=== PATIENT | female | born 1980 | race Caucasian/White ===

== ENCOUNTER → 2024-05-25 16:26 | Outpatient (REF) | payer BC, SELFPAY | LOC: RAD 16:26 | PROVIDERS: ATTENDING PHYSICIAN Physician Assistant Medical | DX: M54.50 Low back pain, unspecified (principal) | CPT/HCPCS: 72110 ==

== ENCOUNTER → 2024-06-28 16:05 | Outpatient (REF) | payer BC, SELFPAY | LOC: PAVMRI 16:05 | PROVIDERS: ATTENDING PHYSICIAN Physician Assistant Medical | DX: M43.9 Deforming dorsopathy, unspecified (principal) | CPT/HCPCS: 72146 ==

== ENCOUNTER → 2025-03-23 07:11 | Outpatient (REF) | payer BC, SELFPAY | LOC: HWRAD 07:11 | PROVIDERS: ATTENDING PHYSICIAN Nurse Practitioner Family; FAMILY PHYSICIAN Physician Assistant Medical | DX: R13.10 Dysphagia, unspecified (principal) | CPT/HCPCS: 76536 ==